=== PATIENT | male | born 1980 | race Caucasian/White ===

== ENCOUNTER 2017-03-17 14:33 | Emergency (ER) | payer OTHER ==
[~2017-03-17] VITALS: Ht 182.9 cm; Wt 113.4 kg
[2017-03-17] MEDS ORDERED: LIDOCAINE 1% INJ 20 ML (XYLOCAINE) VIAL ONE (14:53)
[2017-03-17] MEDS ORDERED: CETI10TA20 PO (14:56)
--- NOTE | 2017-03-17 15:51 | ED Integumentary General ---
General Chief Complaint: Skin/Wound Problems Stated Complaint: INFECTION IN RIGHT LEG Nursing Triage Note: PT REPORTS ABSCESS TO R INNER THIGH. HE ALSO C/O FEVER AND ACHES. Source: patient Exam Limitations: no limitations History of Present Illness Time seen by provider: 15:15 Initial Comments The patient is a 36-year-old white male who presents with a boil on his right medial upper thigh. He reports that it began with a small area last weekend. That opened and drained however the original area has gotten larger and softer and now there is a new large area of redness, firmness and pain over the anterior aspect of the thigh and down two thirds towards the knee. 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 Timing/Duration: week, getting worse Location: extremities (right upper medial thigh) Allergies and Home Medications Allergies Coded Allergies: No Known Drug Allergies (Unverified , 03/17/17) Home Medications Cetirizine HCl 10 Mg Tablet, 10 MG PO DAILY, (Reported) Constitutional: see HPI EENTM: no symptoms reported Respiratory: no symptoms reported Cardiovascular: no symptoms reported Gastrointestinal: no symptoms reported Musculoskeletal: muscle pain Skin: see HPI Psychiatric/Neurological: No Symptoms Reported Endocrine: No Symptoms Reported Hematologic/Lymphatic: No Symptoms Reported Past Tlexrhs-Cabznk-Qctjof Hx Patient Social History Alcohol Use: Denies Use Recreational Drug Use: No Smoking Status: Current Someday Smoker Type Used: Cigars 2nd Hand Smoke Exposure: No Recent Foreign Travel: No Contact w/Someone Who Travel: No Recent Infectious Disease Expo: No Recent Hopitalizations: No Physical Abuse: No Sexual Abuse: No Seasonal Allergies Seasonal Allergies: No Surgeries History of Surgeries: Yes (CYST FROM ANKLE, MOLE REMOVED FROM BACK) Surgeries: Appendectomy Respiratory History of Respiratory Disorde: No Cardiovascular History of Cardiac Disorders: No Neurological History of Neurological Disord: No Genitourinary History of Genitourinary Disor: No Gastrointestinal History of Gastrointestinal Di: No Musculoskeletal History of Musculoskeletal Dis: No Endocrine History of Endocrine Disorders: No HEENT History of HEENT Disorders: No Cancer History of Cancer: No Psychosocial History of Psychiatric Problem: No Suicide Risk Score: 0 Physical Exam Vital Signs Vital Sign - Last 12Hours 03/17/17 14:49 Pulse 93 Resp 18 B/P (MAP) 133/95 Pulse Ox 98 O2 Delivery Room Air Capillary Refill : Less Than 3 Seconds General Appearance: mild distress HEENT: normal ENT inspection Cardiovascular: normal peripheral pulses, regular rate, rhythm, no edema, no gallop, no JVD, no murmur Respiratory: chest non-tender, lungs clear, normal breath sounds, no respiratory distress, no accessory muscle use Skin Problem Character: abscess Comments There is a 7 cm fluctuant area on the upper medial thigh which exhibits a head from previous drainage. Directly adjacent in the horizontal plane and more over the anterior femur is a large area of induration and redness. Immediately adjacent to the palpable lesions is erythema and tenderness both proximally and distal to the target lesions. These were prepped with Hibiclens. Anesthetized first with the fluctuant head and secondly with the more indurated area by 1 percent lidocaine. An 11 scalpel blade was used to incise first the fluctuant lesion. A considerable amount of free flowing sanguinopurulent drainage was obtained. The lesion was then packed with a good 10 inches of 1/2 inch iodoform gauze. The second lesion was then incised. The first flow was thin and consistent with blood. A hemostat was introduced and the area bluntly explored which produced trish pus. This area was also packed with 10-12 inches of 1/2 inch iodoform gauze. Progress/Results/Core Measures Results/Orders My Orders Orders - OMAR QUAN MD Lidocaine 1% Injection (Xylocaine 1% Inj (03/17/17 14:53) Vital Signs/I&O Vital Sign - Last 12Hours 03/17/17 14:49 Pulse 93 Resp 18 B/P (MAP) 133/95 Pulse Ox 98 O2 Delivery Room Air Blood Pressure Mean: 108 Departure Impression Impression: Primary Impression: abscesses right thigh as described above Additional Impression: likely MRSA Disposition: 01 HOME, SELF-CARE Condition: Improved Departure-Patient Inst. Decision time for Depature: 16:01 Referrals: NO,LOCAL PHYSICIAN (PCP) Primary Care Physician Patient Instructions: Abscess Incision and Drainage (DC) Add. Discharge Instructions: All discharge instructions reviewed with patient and/or family. Voiced understanding. Fill and take Bactrim as prescribed Beginning Monday morning PULL each wick of iodoform back approximately 1 inch and trim off the and and redress. Hot packing the area 3 times a day will aid in drainage. Return if problems Scripts Sulfamethoxazole/Trimethoprim (Bactrim Ds Tablet) 1 Each Tablet 1 EACH PO TWICE A DAY, #20 TAB Prov: OMAR QUAN MD 03/17/17 OMAR QUAN MD Mar 17, 2017 15:51
[2017-03-17] MEDS ORDERED: SULF1TAB35 PO (16:03)
[2017-03-17 16:05] VITALS: BP 133/95
== END 2017-03-17 16:05 | disposition home or self-care (01) ==
LOC: ER 14:37
DX: L02.415 Cutaneous abscess of right lower limb (principal); F17.290 Nicotine dependence, other tobacco product, uncomplicated; Z90.49 Acquired absence of other specified parts of digestive tract
CPT/HCPCS: 87070; 87205

== ENCOUNTER 2022-04-26 14:23 | Outpatient (RCR) | payer OTHER ==
[~2022-04-26 14:23] MED LIST: CETI10TA49 PO; SULF1TAB38 PO
[2022-04-26 16:10] LABS: EOSINOPHILS # (AUTO) 0.1 10^3/uL (0.0-0.3); EOSINOPHILS % (AUTO) 1 % (0-10); MEAN CORPUSCULAR VOLUME 69 fL (80-99)
[2022-04-26 16:12] LABS: BASOPHILS # (AUTO) 0.1 10^3/uL (0.0-0.1); BASOPHILS % (AUTO) 1 % (0-10); HEMATOCRIT 42 % (40-54); HEMOGLOBIN 12.4 g/dL (13.3-17.7); LYMPHOCYTES % (AUTO) 22 % (12-44); MEAN CORPUSCULAR HEMOGLOBIN 20 pg (25-34); MEAN CORPUSCULAR HGB CONC 30 g/dL (32-36); MEAN PLATELET VOLUME 9.9 fL (9.0-12.2); MONOCYTES # (AUTO) 0.5 10^3/uL (0.0-1.0); MONOCYTES % (AUTO) 5 % (0-12); NEUTROPHILS # (AUTO) 6.6 10^3/uL (1.8-7.8); NEUTROPHILS % (AUTO) 71 % (42-75); PLATELET COUNT 363 10^3/uL (130-400); WHITE BLOOD COUNT 9.3 10^3/uL (4.3-11.0)
[2022-04-29] MEDS ORDERED: NF-VITD400 PO (09:08)
[2022-04-29] MEDS ORDERED: FERR159T2 PO (09:08)
== END 2022-04-27 ==
LOC: ONC 14:23
PROVIDERS: ATTEND Internal Medicine Hematology & Oncology
DX: D50.9 Iron deficiency anemia, unspecified (principal)
CPT/HCPCS: 82728; 83540; 83550; 85025; 99204

== ENCOUNTER → 2022-04-29 | Outpatient (CLI) | payer OTHER ==
[~2022-04-29] VITALS: Ht 182.9 cm; Wt 136.0 kg
[~2022-04-29] MED LIST changes: +FERR159T2 PO; +NF-VITD400 PO
== END | disposition home or self-care (01) ==
LOC: PREOP 10:39
PROVIDERS: ATTEND Surgery
DX: Z01.818 Encounter for other preprocedural examination (principal)

== ENCOUNTER 2022-05-02 10:20 | Day surgery (SDC) | payer OTHER ==
[~2022-05-02] VITALS: Ht 183 cm; Wt 136.0 kg
[2022-05-02] MEDS ORDERED: LACTATED RINGERS 1,000 ML IV STA (10:29)
[2022-05-02] MEDS ORDERED: HURRICAINE EXT TUBE (BENZOCAINE) XX PRN (10:30)
[2022-05-02 10:55] VITALS: BP 155/97
--- NOTE | 2022-05-02 11:37 | Progress Note-Pre Operative ---
Pre-Operative Progress Note Date of Available H&P: Apr 28, 2022 Date H&P Reviewed: May 02, 2022 Time H&P Reviewed: 09:26 History & Physical: H&P Reviewed, Patient Examed, No changes noted Pre-Operative Diagnosis: anemia CARLI FUENTES DO May 02, 2022 11:37
[2022-05-02] MEDS ORDERED: proPOfol 200 MG/20 ML (DIPRIVAN) VIAL IV ONE ×3 (12:23→12:41)
[2022-05-02] MEDS ORDERED: MIDAZOLAM 2 MG/2 ML (VERSED) VIAL ONE (12:23)
[2022-05-02 13:05] VITALS: BP 123/78
--- NOTE | 2022-05-02 13:06 | Progress Note-Post Operative ---
Post-Operative Progess Note Surgeon (s)/Guest Relations Manager (s) Surgeon CARLI FUENTES DO Guest Relations Manager: HERIBERTO OlivaresII Pre-Operative Diagnosis anemia Post-Operative Diagnosis Polyps Diverticula int hemorrhoids Procedure & Operative Findings Date of Procedure 05/02/22 Procedure Performed/Findings Colonoscopy with hot biopsy PROCEDURE NOTE: After informed consent was obtained, the patient was brought to the endoscopy suite, placed in bed in left lateral decubitus position. He was administered IV sedation by the INTERLOCKING AND SIGNAL MECHANIC who then monitored his vitals the entire time, heart rate, blood pressure and pulse ox and the scope was inserted, pushed all the way to about 150 cm and pushed into the cecum, took a picture of appendiceal orifice and noted the ileocecal valve. Then slowly withdrew the scope insufflating to look circumferentially at the reyes starting in the cecum, up the ascending colon to the hepatic flexure, then down the transverse colon to the splenic flexure and into the descending colon. On the left side had seen some diverticula and take a picture. I also found a polyp here and took a picture and then removed with with hot biopsy. Continued down into the sigmoid where I found another polyp and did another hot biopsy. Finally, into the rectum where I found two different looking polyps and did hot biopsies of both. In the rectal vault I retroflexed the scope and took a picture of the internal hemorrhoids. I had checked with his Bariatric clinic in [facility], they stated when they did the TNE they were able to get into the stomach and therefore I did not do an EGD. The patient tolerated the procedure. He was recovered in endoscopy suite. Recommended for repeat colonoscopy in 5 years. Anesthesia Type IV sedation by [employer] SIGNAL MECHANIC Estimated Blood Loss Estimated blood loss (mL): scant Specimens/Packing Specimens Removed desc colon polyp sigmoid polyp rectal polyp x 2 CARLI FUENTES DO May 02, 2022 13:06
--- NOTE | 2022-05-02 13:07 | Endoscopy Discharge Instruct ---
Endo Procedure/Findings Findings 1.: Polyp 2.: Diverticulosis 3.: Internal Hemorrhoids Discharge Instructions - Activity: You might feel a little sleepy until tomorrow. This is due to the medicine you received to relax you. Until tomorrow, you should: NOT drive a car, operate machinery or power tools. NOT drink any alcoholic beverages. NOT make any important decisions or sign importortant papers. Do not return to work until tomorrow, unless otherwise instructed. Resume previous activities tomorrow. Diet: Start by taking liquids. If you tolerate liquids, advance to solid food. 1.: Colonscopy in 5 years Notify Physician - If you experience excessive bleeding, unusual abdominal pain, fever, or chest pain, contact your doctor immediately. CARLI FUENTES DO May 02, 2022 13:07
--- NOTE | 2022-05-02 13:07 | Anesthesia-General Post-Op ---
MAC Patient Condition Mental Status/LOC: Same as Preop Cardiovascular: Satisfactory Nausea/Vomiting: Absent Respiratory: Satisfactory Pain: Controlled Complications: Absent Post Op Complications Complications None Follow Up Care/Instructions Patient Instructions None needed. Anesthesiology Discharge Order Discharge Order Patient is doing well, no complaints, stable vital signs, no apparent adverse anesthesia problems. No complications reported per nursing. YOLIE CHING CRNA May 02, 2022 13:07
[2022-05-02 13:10] VITALS: BP 128/89
[2022-05-02 13:40] VITALS: BP 133/99
[2022-05-02 13:49] VITALS: BP 133/99
== END 2022-05-02 13:49 | disposition home or self-care (01) ==
LOC: ENDO 10:20
PROVIDERS: ATTEND Surgery
DX: K57.30 Diverticulosis of large intestine without perforation or abscess without bleeding (principal); K64.8 Other hemorrhoids; K63.5 Polyp of colon; E66.9 Obesity, unspecified; D50.9 Iron deficiency anemia, unspecified; Z68.41 Body mass index [BMI] 40.0-44.9, adult; Z28.310 Unvaccinated for COVID-19
CPT/HCPCS: 88305